=== PATIENT | male | born 1935 | race Caucasian/White ===

== ENCOUNTER 2016-08-21 09:14 | Emergency (ER) | payer MEDICARE, OTHER ==
[~2016-08-21 09:14] MED LIST: *UNABLE1; *UNABLE3; AFRIN15 NAS; ASAB PO; AT25 PO; CARDU2 PO; CARDU4 PO; CLEOCIN300 MG PO; COREG12 PO; COREG25 PO; COUMADIN; COUMADIN3 MG PO; COUMADIN7.5 MG PO; COZ25 PO; DOXAZOSIN; DRAMAMINE25 MG PO; FUROSEMIDE; GLUCPH PO; HUMALOG SC; HUMALOGPEN SC; HYDROXYZINE PO; Humalog Inj SC; IMDUR60 PO; INSULIN; INSULIN SC; JANTOVEN7.5 MG PO; K500 PO; KDUR10 PO; L40 PO; LISINOPRIL; MCZ125 PO; MCZ25 PO; MECLIZINE PO; METFORMIN; METFORMIN PO; NITROSTAT0.4 MG SL; NORCO1 TA1 PO; OCEAN NAS; OMNICEF300 PO; OXYCOD PO; PCET PO; PERCOCET1 TA2 PO; PRILO PO; PRILOSEC; PRILOSEC40 MG PO; PRIN10 PO; PRIN5 PO; PROAIR HFA INH; RAN500 PO; SENTAB PO; SPIRIVA INH; SUDAFED PO; VIST25 PO; ZESTRIL10 MG PO; ZOCOR; ZOCOR10 PO; [UNRECOGNIZED DRUG - OTHER] PO
[2016-08-21 10:04] LABS: BASOPHILS 0.4 %; BASOPHILS ABSOLUTE 0.03 10/3/uL (0.0-0.16); EOSINOPHILS 5.8 %; EOSINOPHILS ABSOLUTE 0.39 10/3/uL (0.0-0.53); HEMATOCRIT 41.5 % (40.0-51.0); HEMOGLOBIN 13.9 g/dL (13.6-17.8); IMMATURE GRANULOCYTES 0.1 %; IMMATURE GRANULOCYTES ABSOLUTE 0.01 10/3/uL (0.0-0.11); LYMPHOCYTES ABSOLUTE 0.74 10/3/uL (0.67-4.30); MEAN CORPUS HGB CONC 33.5 g/dL (32.0-36.0); MEAN CORPUSCULAR HEMOGLOB 31.2 pg (26.0-34.0); MEAN PLATELET VOLUME 9.7 fL (9.2-13.0); MONOCYTES 6.8 %; MONOCYTES ABSOLUTE 0.46 10/3/uL (0.21-1.20); NEUTROPHILS 75.9 %; PLATELET COUNT 90 10/3/uL (150-400); RBC DISTRIBUTION WIDTH 14.6 % (12.0-16.0); RED CELL COUNT 4.46 10/6/uL (4.7-6.1); WHITE BLOOD CELLS 6.7 10/3/uL (4.5-10.5)
[2016-08-21 10:06] LABS: MANUAL DIFF NO %
[2016-08-21 10:13] LABS: INTERNATIONAL NORMAL RATI 1.6 UNITS (-); PARTIAL THROMBO TIME 36.1 SEC (22.5-37.2); PROTIME (NOT ORD) 18.8 SEC (12.0-14.5)
[2016-08-21 10:21] LABS: BUN (BLOOD UREA NITROGEN) 36 MG/DL (6-23); CALCIUM, SERUM 8.7 MG/DL (8.5-10.4); CHEST PAIN PROFILE TAT 0 Hrs 21 Mins; CHLORIDE, SERUM 102 MMOL/L (96-112); CO2 (CARBON DIOXIDE) 29 MMOL/L (24-34); CREATININE 1.79 MG/DL (0.70-1.30); GFR AFRICAN AMERICAN 40 ML/MIN (>=60); GFR NON AFRICAN AMERICAN 35 ML/MIN (>=60); GLUCOSE, SERUM 178 MG/DL (60-99); POTASSIUM, SERUM 4.9 MMOL/L (3.5-5.3); SODIUM, SERUM 136 MMOL/L (135-148); TROPONIN I <0.02 NG/ML (<0.05)
[2016-09-05] MEDS ORDERED: PRIN10 PO (00:44)
[2016-09-05] MEDS ORDERED: RAN500 PO (00:53)
[2016-09-05] MEDS ORDERED: ELIQUIS 2.5 MG2.5 MG PO (00:54)
[2016-09-05] MEDS ORDERED: GLUCOTROL5 PO (00:56)
[2016-09-05] MEDS ORDERED: AT25 PO (00:58)
[2016-09-05] MEDS ORDERED: CARDU2 PO (00:59)
[2016-09-05] MEDS ORDERED: ZOCOR10 PO (01:00)
[2016-09-05] MEDS ORDERED: FLOMAX4 PO (01:01)
[2016-09-05] MEDS ORDERED: COREG12 PO (01:02)
[2016-09-05] MEDS ORDERED: IMDUR30 PO (01:03)
[2016-09-05] MEDS ORDERED: L40 PO (01:04)
[2016-09-05] MEDS ORDERED: MCZ25 PO (01:05)
[2016-09-05] MEDS ORDERED: MACROBID PO (01:08)
[2016-09-05] MEDS ORDERED: PRILO PO (01:09)
[2016-09-05] MEDS ORDERED: VENTOLIN HFA INH (01:13)
[2016-09-05] MEDS ORDERED: POLYMYXIN B/ OPH (01:16)
[2016-09-06] MEDS ORDERED: ZITH250 PO (11:43)
[2016-09-06] MEDS ORDERED: MUCINEX600 MG PO (11:44)
[2016-09-06] MEDS ORDERED: STERAPRED DS10 MG (11:44)
[2017-01-12] MEDS ORDERED: OXYCOD PO (21:19)
[2017-01-12] MEDS ORDERED: Z-PAK PO (21:19)
[2017-01-12] MEDS ORDERED: CLOTRIM/BETA TOP (21:20)
[2017-01-12] MEDS ORDERED: SYMBICORT 160/41 INH INH (21:21)
[2017-01-12] MEDS ORDERED: SPIRIVA INH (21:22)
[2017-01-12] MEDS ORDERED: VENTOLIN HFA INH (21:23)
[2017-01-12] MEDS ORDERED: IMDUR60 PO (21:42)
[2017-01-12] MEDS ORDERED: RAN500 PO (21:42)
[2017-01-12] MEDS ORDERED: ELIQUIS 2.5 MG2.5 MG PO (21:43)
[2017-01-12] MEDS ORDERED: GLUCOTROL5 PO (21:43)
[2017-01-12] MEDS ORDERED: MCZ25 PO (21:43)
[2017-01-12] MEDS ORDERED: TEARS PURE OPH (21:44)
[2017-01-12] MEDS ORDERED: AT25 PO (21:44)
[2017-01-12] MEDS ORDERED: CARDU2 PO (21:44)
[2017-01-12] MEDS ORDERED: PRILO PO (21:45)
[2017-01-12] MEDS ORDERED: ZOCOR10 PO (21:45)
[2017-01-12] MEDS ORDERED: L40 PO (21:45)
[2017-01-12] MEDS ORDERED: PRIN10 PO (21:45)
[2017-01-12] MEDS ORDERED: COREG12 PO (21:46)
[2017-01-12] MEDS ORDERED: SENTAB PO (21:46)
[2017-01-12] MEDS ORDERED: HUMALOGPEN SC (21:46)
[2017-01-12] MEDS ORDERED: NEUR600 PO (21:46)
[2017-01-15] MEDS ORDERED: VIBRATAB100 MG PO (09:37)
[2017-01-15] MEDS ORDERED: HUMI PO (09:38)
[2017-01-15] MEDS ORDERED: P10 PO (09:40)
== END 2016-08-21 13:57 | disposition home or self-care (01) ==
LOC: ER 09:14
PROVIDERS: Nurse Practitioner Family
DX: I82.411 Acute embolism and thrombosis of right femoral vein (principal); Z87.891 Personal history of nicotine dependence; J44.9 Chronic obstructive pulmonary disease, unspecified; I25.2 Old myocardial infarction; I12.9 Hypertensive chronic kidney disease with stage 1 through stage 4 chronic kidney disease, or unspecified chronic kidney disease; N18.9 Chronic kidney disease, unspecified; E11.22 Type 2 diabetes mellitus with diabetic chronic kidney disease; Z95.1 Presence of aortocoronary bypass graft; Z88.5 Allergy status to narcotic agent
CPT/HCPCS: 71010; 80048; 83735; 83880; 84484; 85025; 85610; 85730; 93005; 93970; 99284

== ENCOUNTER 2016-10-15 14:12 | Emergency (ER) | payer MEDICARE, OTHER ==
[~2016-10-15 14:12] MED LIST changes: +ELIQUIS 2.5 MG2.5 MG PO; +FLOMAX4 PO; +GLUCOTROL5 PO; +IMDUR30 PO; +MACROBID PO; +MUCINEX600 MG PO; +POLYMYXIN B/ OPH; +STERAPRED DS10 MG; +VENTOLIN HFA INH; +ZITH250 PO
[2017-01-12] MEDS ORDERED: Z-PAK PO (21:19)
[2017-01-12] MEDS ORDERED: OXYCOD PO (21:19)
[2017-01-12] MEDS ORDERED: CLOTRIM/BETA TOP (21:20)
[2017-01-12] MEDS ORDERED: SYMBICORT 160/41 INH INH (21:21)
[2017-01-12] MEDS ORDERED: SPIRIVA INH (21:22)
[2017-01-12] MEDS ORDERED: VENTOLIN HFA INH (21:23)
[2017-01-12] MEDS ORDERED: IMDUR60 PO (21:42)
[2017-01-12] MEDS ORDERED: RAN500 PO (21:42)
[2017-01-12] MEDS ORDERED: ELIQUIS 2.5 MG2.5 MG PO (21:43)
[2017-01-12] MEDS ORDERED: MCZ25 PO (21:43)
[2017-01-12] MEDS ORDERED: GLUCOTROL5 PO (21:43)
[2017-01-12] MEDS ORDERED: CARDU2 PO (21:44)
[2017-01-12] MEDS ORDERED: TEARS PURE OPH (21:44)
[2017-01-12] MEDS ORDERED: AT25 PO (21:44)
[2017-01-12] MEDS ORDERED: L40 PO (21:45)
[2017-01-12] MEDS ORDERED: PRIN10 PO (21:45)
[2017-01-12] MEDS ORDERED: ZOCOR10 PO (21:45)
[2017-01-12] MEDS ORDERED: PRILO PO (21:45)
[2017-01-12] MEDS ORDERED: SENTAB PO (21:46)
[2017-01-12] MEDS ORDERED: COREG12 PO (21:46)
[2017-01-12] MEDS ORDERED: HUMALOGPEN SC (21:46)
[2017-01-12] MEDS ORDERED: NEUR600 PO (21:46)
[2017-01-15] MEDS ORDERED: VIBRATAB100 MG PO (09:37)
[2017-01-15] MEDS ORDERED: HUMI PO (09:38)
[2017-01-15] MEDS ORDERED: P10 PO (09:40)
== END 2016-10-15 15:52 | disposition left against medical advice (07) ==
LOC: ER 14:12
DX: Z53.21 Procedure and treatment not carried out due to patient leaving prior to being seen by health care provider (principal)
CPT/HCPCS: 80048; 83735; 84484; 85025; 85610; 85730; 93005